=== PATIENT | female | born 1955 | race Caucasian/White ===

== ENCOUNTER 2022-06-04 10:41 | Outpatient (CLI) | payer OTHER | END 2022-06-04 10:42 | disposition home or self-care (01) | LOC: SCSRAD 10:41 | PROVIDERS: ATTEND Internal Medicine Rheumatology | DX: M25.542 Pain in joints of left hand (principal); M25.541 Pain in joints of right hand; M54.50 Low back pain, unspecified; M19.042 Primary osteoarthritis, left hand; M19.041 Primary osteoarthritis, right hand; M25.742 Osteophyte, left hand; M47.816 Spondylosis without myelopathy or radiculopathy, lumbar region | CPT/HCPCS: 72100 ==

== ENCOUNTER 2023-02-19 06:33 | Day surgery (SDC) | payer OTHER, MEDICARE ==
[2023-02-15 11:07] VITALS: BMI 40.7
[2023-02-19] MEDS ORDERED: Dexmedetomidine 200 MCG/2 ML VIAL ONE (07:14)
[2023-02-19] MEDS ORDERED: PROPOFOL 20 ML ONE ×2 (07:17→08:00)
[2023-02-19] MEDS ORDERED: fentaNYL PF 100 MCG/2 ML SYRINGE ONE (07:17)
[2023-02-19] MEDS ORDERED: Sodium Chloride 0.9% 100 ML ONE ×2 (07:20→07:22)
[2023-02-19] MEDS ORDERED: CEFAZOLIN 2 GM VIAL ONE (07:22)
[2023-02-19] MEDS ORDERED: ePHEDrine Sulfate 50 MG/10 ML VIAL ONE ×2 (07:45→08:08)
[2023-02-19] MEDS ORDERED: PROPOFOL 200 MG/20 ML VIAL ONE (07:45)
[2023-02-19] MEDS ORDERED: Ondansetron PF 4 MG/2 ML Vial ONE ×2 (07:45→08:09)
[2023-02-19] MEDS ORDERED: Bacitracin Zinc Ointment 30 gm TUBE ONE (07:57)
[2023-02-19] MEDS ORDERED: Bupivacaine PF 0.5% 30 ML VIAL ONE (07:57)
[2023-02-19] MEDS ORDERED: Ipratropium/Albuterol 3 ML NEB ONE (08:45)
== END 2023-02-19 10:20 | disposition home or self-care (01) ==
LOC: SDC 06:33
PROVIDERS: ATTEND Orthopaedic Surgery Hand Surgery
PROC: 0JBK0ZZ Excision of Left Hand Subcutaneous Tissue and Fascia, Open Approach (ICD-10-PCS; principal; 2023-02-19)
DX: D48.19 Other specified neoplasm of uncertain behavior of connective and other soft tissue (principal); I10 Essential (primary) hypertension; J45.909 Unspecified asthma, uncomplicated; M06.9 Rheumatoid arthritis, unspecified; Z79.899 Other long term (current) drug therapy
CPT/HCPCS: 88305; 88311; J2405; J2704; J3490; J7620; S0020